=== PATIENT | male | born 1945 | race Caucasian/White ===

== ENCOUNTER 2021-10-30 05:18 | Day surgery (SDC) | payer MEDICARE, BC ==
[2021-10-23 14:59] LABS: BASOPHILS % (AUTO) 0.7 % (0-1); EOSINOPHILS # (AUTO) 0.3 X10'3 (0-0.9); EOSINOPHILS % (AUTO) 4.9 % (0-6); LYMPHOCYTES # (AUTO) 1.5 X10'3 (1.1-4.8); LYMPHOCYTES % (AUTO) 29.7 % (21-51); MEAN CORPUSCULAR HEMOGLOBIN 33.2 PG (27.0-31.0); MEAN CORPUSCULAR HGB CONC 34.7 g/dL (33.0-36.5); MEAN CORPUSCULAR VOLUME 95.5 FL (78-98); MONOCYTES # (AUTO) 0.7 X10'3 (0-0.9); MONOCYTES % (AUTO) 14.2 % (2-12); NEUTROPHILS # (AUTO) 2.6 X10'3 (1.8-7.7); NEUTROPHILS % (AUTO) 50.5 % (42-75); PRE OP HEMATOCRIT 39.2 % (42.0-52.0); PRE OP HEMOGLOBIN 13.6 g/dL (14.0-17.9); PRE OP PLATELET COUNT 241 X10'3 (140-440); RED CELL DISTRIBUTION WIDTH 13.4 % (11.5-14.5)
[2021-10-23 15:04] LABS: CLARITY,URINE CLEAR (Clear); COLOR,URINE YELLOW (Yellow); GLUCOSE, URINE NEGATIVE (Neg); KETONES,URINE NEGATIVE (Neg); LEUKOCYTE ESTERASE ,URINE NEGATIVE (Neg); NITRITES, URINE NEGATIVE (Neg); OCCULT BLOOD,URINE NEGATIVE (Neg); PROTEIN,URINE NEGATIVE (Neg); UROBILINOGEN,URINE 0.2 E.U/dL (0.2-1.0)
[2021-10-23 15:05] LABS: UA COLLECTION TYPE VOIDED
[2021-10-23 15:13] LABS: ALBUMIN 3.9 G/DL (3.4-5.0); ALBUMIN/GLOBULIN RATIO 1.1 (1.1-1.5); ALKALINE PHOSPHATASE 86 IU/L (46-116); BLOOD UREA NITROGEN 10 MG/DL (7-18); BUN/CREATININE RATIO 9.2 (5.4-32.0); CHLORIDE 101 MMOL/L (99-107); CREATININE 1.09 MG/DL (0.60-1.10); PRE OP ALT 27 U/L (30-65); PRE OP ANION GAP 10 (8-16); PRE OP AST 18 U/L (10-37); PRE OP BILIRUB, TOTAL 0.4 MG/DL (0.0-1.0); PRE OP GLUCOSE 85 MG/DL (70-104); PRE OP POTASSIUM 3.8 MMOL/L (3.4-5.1); PRE OP SODIUM 139 MMOL/L (135-145); TOTAL CARBON DIOXIDE 28.2 MMOL/L (24-32); TOTAL PROTEIN 7.3 G/DL (6.4-8.2); eGFR 66 ML/MIN
[2021-10-30] VITALS (7 sets, daily range): BP systolic 114–133; BP diastolic 55–69
[~2021-10-30] VITALS: Ht 177.8 cm; Wt 63.5 kg
[~2021-10-30 05:18] MED LIST: [UNRECOGNIZED DRUG - OTHER]; ringers solution, lacted 1,000 ML IV SCH
[2021-10-30] MEDS ORDERED: albuterol 2.5 MG/3 ML nebule NEB ONE (05:30)
[2021-10-30] MEDS ORDERED: cefazolin/dext.iso 2gm/50ml IV ONE (05:30)
[2021-10-30] MEDS ORDERED: famotidine 20mg tablet PO ONE (05:30)
[2021-10-30] MEDS ORDERED: BUPIVAcaine/PF 2.5 mg/ml (0.25%) 30ml vial ONE (07:07)
[2021-10-30] MEDS ORDERED: LIDOcaine 1% 30ml preserv. free vial ONE (07:07)
[2021-10-30] MEDS ORDERED: morphine 2 MG/ML inj. syringe IV PRN (08:15)
[2021-10-30] MEDS ORDERED: hydrALAZINE 20mg/ml inj. IV PRN (08:15)
[2021-10-30] MEDS ORDERED: labetalol 20mg/4ml (5mg/ml) syringe IV PRN (08:15)
[2021-10-30] MEDS ORDERED: acetaminophen 1,000mg/100ml IV 100 ML IV PRN (08:15)
[2021-10-30] MEDS ORDERED: meperidine/PF 25mg/ml syringe IV PRN ×3 (08:15)
[2021-10-30] MEDS ORDERED: ondansetron/PF 4mg/2ml inj IV PRN (08:15)
[2021-10-30] MEDS ORDERED: ringers solution, lacted 1,000 ML IV SCH (08:15)
[2021-10-30] MEDS ORDERED: morphine 4 MG/ML inj SYRINge IV PRN (08:15)
[2021-10-30] MEDS ORDERED: proCHLORperazine 10 MG/2 ml inj IV PRN (08:15)
[2021-10-30] MEDS ORDERED: sevoflurane 250ml liquid IH ONE (09:18)
[2021-10-30] MEDS ORDERED: fentaNYL/PF 50MCG/1 ML 2ML syringe ONE (09:25)
[2021-10-30] MEDS ORDERED: midazolam 1 mg/ML 2ml injection ONE (09:32)
[2021-10-30] MEDS ORDERED: LIDOcaine 2% (20mg/ml) 5ml vial ONE (09:35)
[2021-10-30] MEDS ORDERED: ondansetron/PF 4mg/2ml inj ONE (09:35)
[2021-10-30] MEDS ORDERED: propofol inj 20 ML IV ONE (09:35)
[2021-10-30] MEDS ORDERED: dexamethasone sod phosphate 4mg/ml inj. ONE (09:35)
[2021-10-30] MEDS ORDERED: ePHEDrine 50MG/ML INJ. ONE (09:50)
--- NOTE | 2021-10-30 10:12 | NUR ---
Received from OR via , accompanied by Anesthesiologist DR CABRERA and report given by Anesthesiolgist. AWAKENS TO VOICE. VITALS STABLE. DRESSING DI. ISMAEL PAIN.
--- NOTE | 2021-10-30 11:12 | NUR ---
AWAKE AND ORIENTED. VITALS STABLE. DRESSING DI. ISMAEL PAIN. HOME WITH HIS AT THIS TIME.
== END 2021-10-30 11:12 | disposition home or self-care (01) ==
LOC: PAS 05:18 → EDBD 08:30 → PAS 11:12
PROVIDERS: ATTEND Surgery
DX: R59.0 Localized enlarged lymph nodes (principal); C82.15 Follicular lymphoma grade II, lymph nodes of inguinal region and lower limb; K21.9 Gastro-esophageal reflux disease without esophagitis; F17.210 Nicotine dependence, cigarettes, uncomplicated; Z20.822 Contact with and (suspected) exposure to COVID-19; Z72.89 Other problems related to lifestyle; Z85.51 Personal history of malignant neoplasm of bladder; Z98.890 Other specified postprocedural states; Z79.899 Other long term (current) drug therapy
CPT/HCPCS: 36415; 38531; 80053; 81003; 82948; 85025; 88341; 88342; 93005; J0690; J1100; J2250; J2405; J2704; J3010; J3490; J7030; J7120; U0003; U0005; Z7506; Z7512; 88305; A4215; A4618; A6258; A7000